=== PATIENT | male | born 1985 | race Caucasian/White ===

== ENCOUNTER 2016-08-02 09:37 | Emergency (ER) | payer BC ==
[2016-08-02] MEDS: 0.9 % SODIUM CHLORIDE 1,000 ML BAG IV ONE (10:22)
[2016-08-02 11:12] LABS: URINE APPEARANCE CLEAR; URINE BILIRUBIN NEGATIVE (NEGATIVE); URINE BLOOD NEGATIVE (NEGATIVE); URINE COLOR YELLOW; URINE GLUCOSE (UA) NEGATIVE (NEGATIVE); URINE KETONE NEGATIVE (NEGATIVE); URINE LEUKOCYTE ESTERASE NEGATIVE (NEGATIVE); URINE NITRITE NEGATIVE (NEGATIVE); URINE PROTEIN NEGATIVE (NEGATIVE); URINE UROBILINOGEN 0.2 E.U./dL (0.20 - 1.00)
--- NOTE | 2016-08-02 11:27 | Emergency Department Record ---
History of Present Illness - General Chief Complaint: Abdominal Pain Stated Complaint: ABDOMINAL PAIN Time Seen by Provider: 08/02/16 10:07 Source: Patient, Family Mode of Arrival: Ambulatory Limitations: No limitations - History of Present Illness Initial Comments: pt has been having vomiting and diarrhea since yesterday, many times during night.. pt has had no vomiting since 5 am and has been able to keep small amts down. pt was exposed to friend w the same 2 d prior.. pt was in ready care and was brought over here Onset/Timin -: Hour(s) Location: Periumbilical Radiation: None Migration to: No migration Severity: Mild Quality: Aching, Cramping Consistency: Constant Improves With: Nothing Worsens With: Nothing Context: Sick contacts Associated Symptoms: Chills, Diarrhea, Nausea, Vomiting - Related Data Home Medications Medication Instructions Recorded Confirmed Last Taken Omeprazole 20 mg PO QD cap 06/27/16 08/02/16 08/01/16 Previous Rx's Medication Instructions Recorded Ondansetron [Zofran Odt] 4 mg PO Q8H #10 tab.rapdis 08/02/16 Allergies Allergy/AdvReac Type Severity Reaction Status Date / Time No Known Allergies Allergy no Verified 08/02/16 11:22 allergies Travel Screening - Travel/Exposure Within Last 30 Days Have you traveled within the last 30 days?: No Review of Systems Reviewed: No additional complaints except as noted below Constitutional: Reports: As per HPI. Denies: Chills, Fever, Malaise, Night sweats, Weakness, Weight change Eyes: Reports: As per HPI. Denies: Eye discharge, Eye pain, Photophobia, Vision change ENT: Reports: As per HPI. Denies: Congestion, Dental pain, Ear pain, Epistaxis , Hearing loss, Throat pain Respiratory: Reports: As per HPI. Denies: Cough, Dyspnea, Hemoptysis, Stridor, Wheezes Cardiovascular: Reports: As per HPI. Denies: Arrhythmia, Chest pain, Dyspnea on exertion, Edema, Murmurs, Orthopnea, Palpitations, Paroxysmal nocturnal dyspnea, Rheumatic Fever, Syncope Endocrine: Reports: As per HPI. Denies: Fatigue, Heat or cold intolerance, Polydipsia, Polyuria Gastrointestinal: Reports: As per HPI. Denies: Abdominal pain, Constipation, Diarrhea, Hematemesis, Hematochezia, Melena, Nausea, Vomiting Genitourinary: Reports: As per HPI. Denies: Dysuria, Frequency, Hematuria, Incontinence, Retention, Testicular pain, Testicular mass, Urgency Musculoskeletal: Reports: As per HPI. Denies: Arthralgia, Back pain, Gout, Joint swelling, Myalgia, Neck pain Skin: Reports: As per HPI. Denies: Bruising, Change in color, Change in hair/ nails, Lesions, Pruritus, Rash Neurological: Reports: As per HPI. Denies: Abnormal gait, Confusion, Headache, Numbness, Paresthesias, Seizure, Tingling, Tremors, Vertigo, Weakness Psychiatric: Reports: As per HPI. Denies: Anxiety, Auditory hallucinations, Depression, Homicidal thoughts, Suicidal thoughts, Visual hallucinations Hematological/Lymphatic: Reports: As per HPI. Denies: Anemia, Blood Clots, Easy bleeding, Easy bruising, Swollen glands Past Medical History - SOCIAL HISTORY Smoking Status: Never smoker Alcohol Use: Occassional Drug Use: None - RESPIRATORY Hx Respiratory Disorders: No - CARDIOVASCULAR Hx Cardio Disorders: No - NEURO Hx Neuro Disorders: No - GI Hx GI Disorders: Yes Hx Reflux: Yes - Hx Genitourinary Disorders: No - ENDOCRINE Hx Endocrine Disorders: No - MUSCULOSKELETAL Hx Musculoskeletal Disorders: No - PSYCH Hx Psych Problems: No - HEMATOLOGY/ONCOLOGY Hx Hematology/Oncology Disorders: No Family Medical History Any Significant Family History?: Yes Hx Cancer: Father, Mother Hx Heart Disease: Father Physical Exam - General General Appearance: Alert, Oriented x3, Cooperative, Mild distress - Head Head exam: Normal inspection - Eye Eye exam: Normal appearance, PERRL Pupils: Normal accommodation - ENT ENT exam: Normal exam, Mucous membranes moist, Normal external ear exam, Normal orophraynx, TM's normal bilaterally Ear exam: Normal external inspection. negative: External canal tenderness Nasal Exam: Normal inspection. negative: Discharge, Sinus tenderness Mouth exam: Normal external inspection, Tongue normal Teeth exam: Normal inspection. negative: Dental caries Throat exam: Normal inspection. negative: Tonsillar erythema, Tonsillar exudate - Neck Neck exam: Normal inspection, Full ROM. negative: Tenderness - Respiratory Respiratory exam: Normal lung sounds bilaterally. negative: Respiratory distress - Cardiovascular Cardiovascular Exam: Normal rhythm, Normal heart sounds, Tachycardia - GI/Abdominal GI/Abdominal exam: Soft, Normal bowel sounds. negative: Tenderness - Rectal Rectal exam: Deferred - exam: Deferred - Extremities Extremities exam: Normal inspection, Full ROM, Normal capillary refill. negative: Tenderness - Back Back exam: Reports: Normal inspection, Full ROM. Denies: Muscle spasm, Rash noted, Tenderness - Neurological Neurological exam: Alert, CN II-XII intact, Normal gait, Oriented X3 - Psychiatric Psychiatric exam: Normal affect, Normal mood - Skin Skin exam: Dry, Intact, Normal color, Warm Course Vital Signs 08/02/16 09:42 Temperature 99.4 F Pulse Rate 113 H Respiratory 20 Rate Blood Pressure 115/78 Pulse Ox 95 - Reevaluation(s) Reevaluation #1: 08/02/16 11:33 pt feels much better. Medical Decision Making - Lab Data Lab Results 08/02/16 08/02/16 08/02/16 Range/Units 08:49 08:49 11:05 Amylase 32 (30-110) U/L Lipase 21 L (23-300) U/L Urine Color Yellow Urine Appearance Clear Urine pH 6.0 (5.0-8.0) Ur Specific [place] >= 1.030 (1.002-1.030) Urine Protein Negative (NEGATIVE) Urine Glucose (UA) Negative (NEGATIVE) Urine Ketones Negative (NEGATIVE) Urine Blood Negative (NEGATIVE) Urine Nitrite Negative (NEGATIVE) Urine Bilirubin Negative (NEGATIVE) Urine Urobilinogen 0.2 (0.20 - 1.00) E.U./dL Ur Leukocyte Esterase Negative (NEGATIVE) Disposition Disposition: Discharge Clinical Impression: Vomiting and diarrhea, Dehydration Disposition: Home, Self-Care Condition: (1) Good Instructions: Acute Nausea and Vomiting (ED), Acute Diarrhea (ED), Dehydration (ED) Additional Instructions: follow up with family doctor. return sooner if worse. push fluida. Prescriptions: Ondansetron [Zofran Odt] 4 mg PO Q8H #10 tab.rapdis Forms: Patient Portal Access, Return to Work/School
[2016-08-02] MEDS: KETOROLAC 30 MG/ML VIAL IVP ONE (11:39)
== END 2016-08-02 12:00 | disposition home or self-care (01) ==
LOC: ER 09:37
DX: E86.0 Dehydration (principal); R11.2 Nausea with vomiting, unspecified; R19.7 Diarrhea, unspecified; R10.33 Periumbilical pain
CPT/HCPCS: 99284 ×2; 96374; 96361; 82150; 83690; 81003; J1885; J7030

== ENCOUNTER 2016-12-22 16:05 | Emergency (ER) | payer BC ==
[2016-12-22] MEDS ORDERED: 0.9 % SODIUM CHLORIDE 1,000 ML BAG IV ONE (17:04)
[2016-12-22] MEDS ORDERED: KETOROLAC 30 MG/ML VIAL IVP ONE (17:05)
--- NOTE | 2016-12-22 17:05 | Emergency Department Record ---
History of Present Illness - General Chief Complaint: Back Pain/Injury Stated Complaint: LEFT BACK PAIN Time Seen by Provider: 12/22/16 17:03 Source: Patient - History of Present Illness Initial Comments: The patient states that he has had left lower back/flank pain this week. He saw his PCP and was given flexeril which he has had been taking. It has not helped. He denies lifting bending, twisting or injuring his back to his knowledge. He got up to a standing position earlier and became diaphoretic and felt like he could pass out briefly, so he came here to be checked. He denies f,c,n,v,d, URI symptoms. He has no history of kidney stones or medical problems. The pain does not radiate into his groin or private area. MD Complaint: Other (left flank pain) Onset/Timin -: Days(s) Similar Symptoms Previously: No Place: Home Radiation: None Severity: Moderate Severity scale (1-10): 8 Quality: Sharp Consistency: Constant Improves With: Immobilization Worsens With: Deep breaths/cough, Movement Context: Unknown Associated Symptoms: Denies other symptoms Treatment Prior to Arrival Comment:: Flexeril - Related Data Home Medications Medication Instructions Recorded Confirmed Last Taken Omeprazole 20 mg PO QD cap 06/27/16 12/22/16 08/01/16 Previous Rx's Medication Instructions Recorded Tramadol HCl [Ultram] 50 mg PO Q8H PRN #10 tab 12/22/16 Allergies Allergy/AdvReac Type Severity Reaction Status Date / Time No Known Allergies Allergy no Verified 12/22/16 16:11 allergies Travel Screening - Travel/Exposure Within Last 30 Days Have you traveled within the last 30 days?: No Review of Systems Reviewed: No additional complaints except as noted below Constitutional: Reports: As per HPI. Denies: Chills, Fever, Malaise, Night sweats, Weakness, Weight change Eyes: Reports: As per HPI. Denies: Eye discharge, Eye pain, Photophobia, Vision change ENT: Reports: As per HPI. Denies: Congestion, Dental pain, Ear pain, Epistaxis , Hearing loss, Throat pain Respiratory: Reports: As per HPI. Denies: Cough, Dyspnea, Hemoptysis, Stridor, Wheezes Cardiovascular: Reports: As per HPI. Denies: Arrhythmia, Chest pain, Dyspnea on exertion, Edema, Murmurs, Orthopnea, Palpitations, Paroxysmal nocturnal dyspnea, Rheumatic Fever, Syncope Endocrine: Reports: As per HPI. Denies: Fatigue, Heat or cold intolerance, Polydipsia, Polyuria Gastrointestinal: Reports: As per HPI. Denies: Abdominal pain, Constipation, Diarrhea, Hematemesis, Hematochezia, Melena, Nausea, Vomiting Genitourinary: Reports: As per HPI. Denies: Dysuria, Frequency, Hematuria, Incontinence, Retention, Testicular pain, Testicular mass, Urgency Musculoskeletal: Reports: As per HPI. Denies: Arthralgia, Back pain, Gout, Joint swelling, Myalgia, Neck pain Skin: Reports: As per HPI. Denies: Bruising, Change in color, Change in hair/ nails, Lesions, Pruritus, Rash Neurological: Reports: As per HPI. Denies: Abnormal gait, Confusion, Headache, Numbness, Paresthesias, Seizure, Tingling, Tremors, Vertigo, Weakness Psychiatric: Reports: As per HPI. Denies: Anxiety, Auditory hallucinations, Depression, Homicidal thoughts, Suicidal thoughts, Visual hallucinations Hematological/Lymphatic: Reports: As per HPI. Denies: Anemia, Blood Clots, Easy bleeding, Easy bruising, Swollen glands Past Medical History - SOCIAL HISTORY Smoking Status: Never smoker Alcohol Use: Occassional Drug Use: None - RESPIRATORY Hx Respiratory Disorders: No - CARDIOVASCULAR Hx Cardio Disorders: No - NEURO Hx Neuro Disorders: No - GI Hx GI Disorders: Yes Hx Reflux: Yes - Hx Genitourinary Disorders: No - ENDOCRINE Hx Endocrine Disorders: No - MUSCULOSKELETAL Hx Musculoskeletal Disorders: No - PSYCH Hx Psych Problems: No - HEMATOLOGY/ONCOLOGY Hx Hematology/Oncology Disorders: No Family Medical History Any Significant Family History?: Yes Hx Cancer: Father, Mother Hx Heart Disease: Father Physical Exam - General General Appearance: Alert, Oriented x3, Cooperative, No acute distress, Mild distress, Other (painful movement from laying to sitting and sitting to standing ; normal gait once standing.) - Head Head exam: Normal inspection - Eye Eye exam: Normal appearance, PERRL Pupils: Normal accommodation - ENT ENT exam: Normal exam, Mucous membranes moist, Normal external ear exam, Normal orophraynx, TM's normal bilaterally Ear exam: Normal external inspection. negative: External canal tenderness Nasal Exam: Normal inspection. negative: Discharge, Sinus tenderness Mouth exam: Normal external inspection, Tongue normal Teeth exam: Normal inspection. negative: Dental caries Throat exam: Normal inspection. negative: Tonsillar erythema, Tonsillar exudate - Neck Neck exam: Normal inspection, Full ROM. negative: Tenderness - Respiratory Respiratory exam: Normal lung sounds bilaterally. negative: Respiratory distress - Cardiovascular Cardiovascular Exam: Regular rate, Normal rhythm, Normal heart sounds - GI/Abdominal GI/Abdominal exam: Soft, Normal bowel sounds, Tenderness (left flank dicomfort comes around into the LUQ of his abdomen) - Rectal Rectal exam: Deferred - exam: Deferred - Extremities Extremities exam: Normal inspection, Full ROM, Normal capillary refill. negative: Calf tenderness, Pedal edema, Tenderness - Back Back exam: Reports: Normal inspection, CVA tenderness (L), Full ROM. Denies: CVA tenderness (R), Muscle spasm, Rash noted, Tenderness - Neurological Neurological exam: Alert, CN II-XII intact, Normal gait, Oriented X3, Reflexes normal. negative: Motor sensory deficit - Psychiatric Psychiatric exam: Normal affect, Normal mood - Skin Skin exam: Dry, Intact, Normal color, Warm Course Vital Signs 12/22/16 16:12 Temperature 98.5 F Pulse Rate 76 Respiratory 18 Rate Blood Pressure 127/88 Pulse Ox 95 - Reevaluation(s) Reevaluation #1: Patient is requesting something more for his pain. 12/22/16 18:48 Reevaluation #2: Improved after dilaudid. Results discussed with patient and family. Will give ultram along with his flexeril, and have him take magnesium citrate liquid at home for constipation. 12/22/16 19:15 Medical Decision Making - Management Options MDM Management: No Additional Work-up Planned - Data Complexity MDM Data: Labs Ordered and/or Reviewed, X-Ray Ordered and/or Reviewed ( Noncontrast CT ABd/Pelvis: No abnormality, no stones, no hydro, nl appendix, moderate stool in colon. Per Rad.) - Lab Data Result diagrams: 12/22/16 17:00 12/22/16 17:00 Disposition Disposition: Discharge Clinical Impression: Left flank pain, Muscle strain Constipation Qualifiers: Constipation type: other constipation type Qualified Code(s): K59.09 - Other constipation Disposition: Home, Self-Care Condition: (1) Good Instructions: Low Back Strain (ED), Constipation (ED), High Fiber Diet (ED) Additional Instructions: No lifting bending twisting. Push fluids. Ultram as directed as needed for pain. Continue flexeril as directed. Take 1/2/ bottle mg citrate now( over the counter in pharmacy) and in 6 hours for bowel movement. High fiber diet. Follow up with PCP next week. Prescriptions: Tramadol HCl [Ultram] 50 mg PO Q8H PRN #10 tab PRN Reason: Pain - General Forms: Patient Portal Access
[2016-12-22 17:16] LABS: URINE APPEARANCE CLEAR; URINE BILIRUBIN NEGATIVE (NEGATIVE); URINE BLOOD NEGATIVE (NEGATIVE); URINE COLOR YELLOW; URINE GLUCOSE (UA) NEGATIVE (NEGATIVE); URINE KETONE NEGATIVE (NEGATIVE); URINE LEUKOCYTE ESTERASE NEGATIVE (NEGATIVE); URINE NITRITE NEGATIVE (NEGATIVE); URINE PROTEIN NEGATIVE (NEGATIVE); URINE UROBILINOGEN 0.2 E.U./dL (0.20 - 1.00)
[2016-12-22 17:19] LABS: HEMATOCRIT 46.5 % (42.0-52.0); HEMOGLOBIN 15.5 gm/dl (14.0-18.0); MEAN CELL VOLUME 84.2 fl (81-97); MEAN CORPUSCULAR HEMOGLOBIN 28.1 pg (27-33); MEAN CORPUSCULAR HGB CONC 33.3 g/dl (32-36); MEAN PLATELET VOLUME 9.2 fl (7.4-10.4); PLATELET COUNT 357 K/uL (130-400); RED BLOOD COUNT 5.52 M/uL (4.40-5.70); RED CELL DISTRIBUTION WIDTH 13.5 % (11.5-14.5); WHITE BLOOD COUNT W/O DIFF 8.9 K/uL (4.2-12.2)
[2016-12-22 17:27] LABS: ANION GAP 7.6 (7-16); BLOOD UREA NITROGEN 13 mg/dL (9-20); CARBON DIOXIDE 28.4 mmol/L (22-30); CREATININE 0.9 mg/dL (0.66-1.25); EST GLOMERULAR FILTRATION RATE > 60 ml/min; GLUCOSE,RANDOM 125 mg/dL (70-110); LIPASE 41 U/L (23-300); PLATELET ESTIMATE NORMAL (NORMAL)
[2016-12-22] MEDS ORDERED: HYDROMORPHONE HCL 1 MG/ML CPJ IVP ONE (18:48)
[2016-12-22] MEDS ORDERED: ONDANSETRON HCL IV 4 MG/2 ML VIAL IVP ONE (18:48)
--- NOTE | 2016-12-28 05:19 | CT SCAN REPORT ---
EXAM: CT SCAN ABDOMEN/PELVIS WO CONTRAST HISTORY: ACUTE LEFT LOWER QUADRANT ABDOMINAL PAIN. TECHNIQUE: Contiguous axial images from the lung bases through the symphysis pubis were obtained without contrast. COMPARISON: None. FINDINGS: Minimal bibasilar dependent atelectasis. Evaluation of the solid abdominal visceral organs is compromised due to lack of IV contrast although the liver and spleen are unremarkable. No renal calculi, hydronephrosis, or perinephric fat stranding. Adrenals, pancreas, and gallbladder are unremarkable. Visualized loops of small and large bowel are of normal caliber with no bowel wall thickening. Normal appendix. Small to moderate fecal material throughout the colon. No free intraperitoneal fluid or adenopathy. No lytic or blastic osseous lesion. IMPRESSION: 1. NO RENAL CALCULI OR HYDRONEPHROSIS. NO ACUTE INFLAMMATORY PROCESS OF THE ABDOMEN OR PELVIS. 2. NORMAL APPENDIX. JOB NUMBER: [id number] MTDD
== END 2016-12-22 19:32 | disposition home or self-care (01) ==
LOC: ER 16:05
DX: S39.012A Strain of muscle, fascia and tendon of lower back, initial encounter (principal); R10.12 Left upper quadrant pain; K59.09 Other constipation; X58.XXXA Exposure to other specified factors, initial encounter
CPT/HCPCS: 99284 ×2; 96374; 96375; 83690; 80048; 81003; 85027; 74176; J1885; J2405; J1170; J7030

== ENCOUNTER 2017-10-08 16:51 | Emergency (ER) | payer BC ==
[2017-10-08] MEDS ORDERED: Diph,Pert(Acell),Tet Vac 0.5 ML SYR IM ONE (18:10)
--- NOTE | 2017-10-08 18:12 | Emergency Department Record ---
History of Present Illness - General Chief Complaint: Laceration(s) Stated Complaint: RT WRIST/HAND LACERATION Time Seen by Provider: 10/08/17 18:09 Source: Patient Mode of Arrival: Ambulatory Limitations: No limitations - History of Present Illness Initial Commments: The patient is here due to a R wrist laceration which occurred about 2 hours ago. He had a metal object impale the R wrist. The patient denies any numbness, tingling or weakness. There is no FB sensation and his Td is > 5 years ago. Onset/Timin -: Hour(s) Place: Home Context: Accidental - Gus Coma Scale Eye Response: (4) Open spontaneously Motor Response: (6) Obeys commands Verbal Response: (5) Oriented Gus Total: 15 - Related Data Year of Tetanus Vaccination: 2010 Patient Tetanus UTD (within 5 yrs): (pt thinks 2010) Previous Rx's Medication Instructions Recorded Cephalexin [Keflex] 500 mg PO QID #20 cap 10/08/17 Allergies Allergy/AdvReac Type Severity Reaction Status Date / Time No Known Allergies Allergy no Unverified 07/14/17 08:12 allergies Travel Screening - Travel/Exposure Within Last 30 Days Have you traveled within the last 30 days?: No - Travel/Exposure Within Last Year Have you traveled outside the [place] in the last year?: No - Additonal Travel Details Have you been exposed to anyone with a communicable illness?: No - Travel Symptoms Symptom Screening: None Review of Systems Constitutional: Denies: Chills, Fever Past Medical History - SOCIAL HISTORY Smoking Status: Never smoker Alcohol Use: Rare Drug Use: None - RESPIRATORY Hx Respiratory Disorders: No - CARDIOVASCULAR Hx Cardio Disorders: No - NEURO Hx Neuro Disorders: No - GI Hx GI Disorders: Yes Hx Reflux: Yes - Hx Genitourinary Disorders: No - ENDOCRINE Hx Endocrine Disorders: No - MUSCULOSKELETAL Hx Musculoskeletal Disorders: No - PSYCH Hx Psych Problems: No - HEMATOLOGY/ONCOLOGY Hx Hematology/Oncology Disorders: No Family Medical History Any Significant Family History?: No Hx Cancer: Father, Mother Hx Heart Disease: Father Physical Exam - General General Appearance: Alert, Cooperative, No acute distress - Head Head exam: Atraumatic, Normocephalic - Eye Eye exam: Normal appearance, PERRL - Extremities Extremities exam: Full ROM (There is mild pain with full ROM.), Tenderness ( There is mild tenderness around the laceration.), Other (The R hand is NVI with normal sensation and motor function.). negative: Normal inspection (There is a 3 cm vertically oriented lac to the anterior mid carpal area. The R hand is NVI distally.) Image of Hand: 1 - 3 cm lac. Course Vital Signs 10/08/17 17:34 Temperature 98.7 F Pulse Rate 110 H Respiratory 16 Rate Blood Pressure 123/95 Pulse Ox 94 L - Reevaluation(s) Reevaluation #1: Procedure note: The R wrist was prepped sterile fashion and anesth. with 2 cc Lido 1% with Epi. The wound was cleansed with betadine and lavaged with sterile saline. The wound was explored and was not deep thru the dermis. There was no visible bone, or tendon in the wound. The lac edges were debrided minimally and the lac was closed with 5 4.0 nylon sutures. There were no complications. 10/08/17 19:21 Medical Decision Making - Data Complexity MDM Data: X-Ray Ordered and/or Reviewed (R wrist: Neg for fx of FB.) Disposition Disposition: Discharge Clinical Impression: Laceration of wrist Qualifiers: Encounter type: initial encounter Laterality: right Qualified Code(s): S61.511A - Laceration without foreign body of right wrist, initial encounter Disposition: Home, Self-Care Condition: (2) Stable Instructions: Laceration (ED) Additional Instructions: Please keep the wrist dry for 2 days. Watch for signs of infection. Have the sutures removed in 10 days. Return to the ER for any problems. Prescriptions: Cephalexin [Keflex] 500 mg PO QID #20 cap Forms: Patient Portal Access Time of Disposition: 19:17 Quality - Quality Measures Quality Measures: N/A - Blood Pressure Screening View Details: Yes Does Patient Have Any of the Following: No Blood Pressure Classification: Hypertensive Reading Systolic Measurement: 118 Diastolic Measurement: 91 Screening for High Blood Pressure: < First Hypertensive BP, F/U Documented > [ G8950] First Hypertensive Follow-up Interventions: Referral to alternative/primary care provider.
--- NOTE | 2017-10-09 14:36 | RADIOLOGY REPORT ---
EXAM: RIGHT WRIST HISTORY: RIGHT WRIST LACERATION TODAY. TECHNIQUE: Four views of the right wrist were obtained. Comparison: None. FINDINGS: The bones appear intact. There is no visible acute fracture or dislocation. There is soft tissue laceration anteriorly. There is no visible foreign body. IMPRESSION: NO FRACTURE OR FOREIGN BODY. JOB NUMBER: [id number] MTDD
== END 2017-10-08 19:26 | disposition home or self-care (01) ==
LOC: ER 16:51
DX: S61.511A Laceration without foreign body of right wrist, initial encounter (principal); W45.8XXA Other foreign body or object entering through skin, initial encounter; W22.8XXA Striking against or struck by other objects, initial encounter; Y92.009 Unspecified place in unspecified non-institutional (private) residence as the place of occurrence of the external cause
CPT/HCPCS: 12002; 90715; 96372; 99283; 99284

== ENCOUNTER 2017-10-18 10:12 | Emergency (ER) | payer BC ==
--- NOTE | 2017-10-18 10:29 | Emergency Department Record ---
History of Present Illness - General Chief Complaint: Suture removal Stated Complaint: SUTURE REMOVAL Time Seen by Provider: 10/18/17 10:21 Source: Patient Mode of arrival: Ambulatory Limitations: No limitations - History of Present Illness Initial Comments: The patient is here for suture removal. He denies any problems. Complaint: Suture/staple removal Onset/Timin -: Days(s) Initial Visit For: Laceration Returns Today for: Staple/stitch removal Symptoms Since Prior Visit: Improved Associated Symptoms: None Treatments Prior to Arrival: Dressings - Related Data Previous Rx's Medication Instructions Recorded Cephalexin [Keflex] 500 mg PO QID #20 cap 10/08/17 Allergies Allergy/AdvReac Type Severity Reaction Status Date / Time No Known Allergies Allergy no Verified 10/18/17 10:16 allergies Travel Screening - Travel/Exposure Within Last 30 Days Have you traveled within the last 30 days?: No - Travel/Exposure Within Last Year Have you traveled outside the [place] in the last year?: No - Additonal Travel Details Have you been exposed to anyone with a communicable illness?: No - Travel Symptoms Symptom Screening: None Past Medical History - SOCIAL HISTORY Smoking Status: Never smoker Alcohol Use: Occasional Drug Use: None - RESPIRATORY Hx Respiratory Disorders: No - CARDIOVASCULAR Hx Cardio Disorders: No - NEURO Hx Neuro Disorders: No - GI Hx GI Disorders: Yes Hx Reflux: Yes - Hx Genitourinary Disorders: No - ENDOCRINE Hx Endocrine Disorders: No - MUSCULOSKELETAL Hx Musculoskeletal Disorders: No - PSYCH Hx Psych Problems: No - HEMATOLOGY/ONCOLOGY Hx Hematology/Oncology Disorders: No Family Medical History Any Significant Family History?: Yes Hx Cancer: Father, Mother Hx Heart Disease: Father Physical Exam - General General Appearance: Alert, Cooperative, No acute distress - Extremities Extremities exam: Normal inspection (The sutures were removed without difficulty. Steri strips were applied.) Course Vital Signs 10/18/17 10:17 Temperature 97.6 F Pulse Rate 72 Respiratory 20 Rate Blood Pressure 121/65 Pulse Ox 97 Disposition Disposition: Discharge Clinical Impression: Visit for suture removal Disposition: Home, Self-Care Condition: (2) Stable Instructions: Stitches Removal (ED) Additional Instructions: Return to the ER for any problems. Forms: Patient Portal Access Time of Disposition: 10:29 Quality - Quality Measures Quality Measures: N/A - Blood Pressure Screening View Details: Yes Does Patient Have Any of the Following: No Blood Pressure Classification: Pre-Hypertensive BP Reading Systolic Measurement: 121 Diastolic Measurement: 65 Screening for High Blood Pressure: < Pre-Hypertensive BP, F/U Documented > [ G8950] Pre-Hypertensive Follow-up Interventions: Referral to alternative/primary care provider.
== END 2017-10-18 10:37 | disposition home or self-care (01) ==
LOC: ER 10:12
DX: Z48.02 Encounter for removal of sutures (principal)